=== PATIENT | female | born 1980 | race Hispanic/Latino ===

== ENCOUNTER → 2023-05-06 | Emergency (ER) | payer SELFPAY ==
[~2023-05-06] MED LIST: AMOX/K CLAV 875 MG TAB ONE
--- NOTE | 2023-05-06 22:12 | EDPHYS ---
Physician Documentation [facility] Name: Pilar Akins Age: 43 yrs Sex: Female : 1980 Arrival Date: 05/06/2023 Time: 21:51 Bed IW1 Private MD: ED Physician Morales Gordon HPI: 05/06 22:12 This 43 yrs old Female presents to ER via Ambulatory with complaints of Jaw ec2 Pain, Ear Pain, Diarrhea. 22:12 Patient arrives today for right lower dental pain. Patient reports that she has a ec2 history of dental infections, dental caries, supposed to have her tooth pulled however has not seen a dentist. Patient reports no fevers, reports subjective chills. Reports some nausea. Reports bouts of diarrhea as well. Patient reports no issues with p.o. intake, does report right lower jaw pain.. Historical: - Allergies: 22:08 Tramadol; hb - Home Meds: 22:07 None [Active]; hb - PMHx: 22:07 None; hb - PSHx: 22:07 None; Tramadol; hb - Immunization history:: Adult Immunizations up to date. - Social history:: Smoking status: Patient denies any tobacco usage or history of. ROS: 22:12 Constitutional: as per hpi ec2 Exam: 22:12 Constitutional: GEN: NAD Head: atraumatic Eyes: EOMI Ears: External ears are normal. ec2 Mouth: Significant dental caries in the right lower mouth, erythema at the gumline, neck with no swelling, no induration, no fluctuance. No malocclusion, no issues with airway, no issues with phonation, no issues with secretions. CV: regular rate LUNGS: no respiratory distress ABD: non-distended SKIN: no evidence of rashes MSK: no evidence of trauma NEURO: moves all extremities equally Vital Signs: 22:05 BP 150 / 87; Pulse 79; Resp 18; Temp 98.1; Pulse Ox 100% on R/A; Pain 6/10; hb 22:05 Pain Scale: Adult hb MDM: 22:11 Patient medically screened. ec2 22:12 Data reviewed: vital signs. ED course: Patient arrives today for evaluation of dental ec2 pain. Examination remarkable for dental findings noted above. Will treat for dental infection, low suspicion for deep space infection given the patient's well appearance. Will defer any lab work such as CBC or BMP, accordingly will also defer CT scan of the neck. Instructed her to follow-up with a dentist for teeth extraction.. Administered Medications: 22:23 Drug: Amoxicillin-Clavulanate PO 875 mg PO once Route: PO; hb 22:23 Follow up: Response: Medication administered at discharge. hb Disposition Summary: 05/06/23 22:11 Discharge Ordered Notes: Location: Home ec2 Condition: Stable ec2 Diagnosis - Dental Infection ec2 Followup: ec2 - With: Private Physician - When: - Reason: Re-evaluation by your physician Discharge Instructions: - Discharge Summary Sheet ec2 - Dental Caries, Adult ec2 Forms: - Medication Reconciliation Form ec2 - Thank You Letter ec2 - Antibiotic Education ec2 - Prescription Opioid Use ec2 - Patient Portal Instructions ec2 - Leadership Thank You Letter ec2 Prescriptions: - Augmentin 875-125 mg Oral tablet - take 1 tablet ORAL route every 12 hours for 7 days; 14 tablet; Refills: 0, ec2 Product Selection Permitted - Zofran 4 mg Oral Tablet - take 1 tablet ORAL route every 12 hours As needed; 20 tablet; Refills: 0, ec2 Product Selection Permitted Signatures: Tamar Alvarenga RN RN Morales Gordon MD MD ec2 Corrections: (The following items were deleted from the chart) 22:07 22:07 Allergies: tramadol; hb hb
--- NOTE | 2023-05-06 22:12 | ER ---
Nurse's Notes [facility] Name: Pilar Akins Age: 43 yrs Sex: Female : 1980 Arrival Date: 05/06/2023 Time: 21:51 Bed IW1 Private MD: Diagnosis: Dental Infection Presentation: 05/06 22:05 Chief complaint: Right lower molar pain x 3 days, pain began to radiate to right neck + hb right sided faciale swelling since last night. Vomiting and chills today. Coronavirus screen: At this time, the client does not indicate any symptoms associated with coronavirus-19. Ebola Screen: No symptoms or risks identified at this time. Initial Sepsis Screen: Does the patient meet any 2 criteria? No. Patient's initial sepsis screen is negative. Does the patient have a suspected source of infection? No. Patient's initial sepsis screen is negative. Risk Assessment: Do you want to hurt yourself or someone else? Patient reports no desire to harm self or others. Onset of symptoms was May 03, 2023. 22:05 Method Of Arrival: Ambulatory hb 22:08 Acuity: VERN 4 hb Triage Assessment: 22:07 General: Appears in no apparent distress. Behavior is calm, cooperative. Pain: Pain hb currently is 6 out of 10 on a pain scale. EENT: Reports right sided facial pain and swelling. Neuro: Level of Consciousness is awake, alert, obeys commands, Oriented to person, place, time, situation. Cardiovascular: Patient's skin is warm and dry. Respiratory: Respiratory effort is even, unlabored, Respiratory pattern is regular, symmetrical. Historical: - Allergies: 22:08 Tramadol; hb - Home Meds: 22:07 None [Active]; hb - PMHx: 22:07 None; hb - PSHx: 22:07 None; Tramadol; hb - Immunization history:: Adult Immunizations up to date. - Social history:: Smoking status: Patient denies any tobacco usage or history of. Screenin:23 [facility] ED Fall Risk Assessment (Adult) Score/Fall Risk Level 0 - 2 = Low Risk hb Oriented to surroundings, Maintained a safe environment. Abuse screen: Denies threats or abuse. Denies injuries from another. Nutritional screening: No deficits noted. Tuberculosis screening: No symptoms or risk factors identified. Assessment: 22:23 General: See triage assessment.. hb Vital Signs: 22:05 BP 150 / 87; Pulse 79; Resp 18; Temp 98.1; Pulse Ox 100% on R/A; Pain 6/10; hb 22:05 Pain Scale: Adult hb ED Course: 21:54 Patient arrived in ED. im 21:55 Morales Gordon MD is Attending Physician. ec2 22:07 Arm band placed on. hb 22:08 Triage completed. hb 22:19 Tamar Alvarenga, RN is Primary Nurse. hb 22:23 Patient has correct armband on for positive identification. Provided Education on: hb education, follow up. 22:23 No provider procedures requiring assistance completed. Patient did not have IV access hb during this emergency room visit. Administered Medications: 22:23 Drug: Amoxicillin-Clavulanate PO 875 mg PO once Route: PO; hb 22:23 Follow up: Response: Medication administered at discharge. hb Medication: 22:23 VIS not applicable for this client. hb Outcome: 22:11 Discharge ordered by . ec2 22:23 Discharged to home ambulatory, hb 22:23 Condition: stable 22:23 Discharge instructions given to patient, Instructed on discharge instructions, follow up and referral plans. medication usage, Demonstrated understanding of instructions, follow-up care, medications, Prescriptions given X 2, 22:24 Patient left the ED. hb Signatures: Tamar Alvarenga RN RN Nalini Baltazar Morales Gordon MD MD ec2 Corrections: (The following items were deleted from the chart) 22:07 22:07 Allergies: tramadol; hb hb 22:09 22:05 BP 154 / 107; Pulse 79bpm; Resp 18bpm; Pulse Ox 100% RA; Temp 98.1F; hb hb 22:09 22:05 BP 150 / 87; Pulse 79bpm; Resp 18bpm; Pulse Ox 100% RA; Temp 98.1F; hb hb
[2023-05-06 22:42] VITALS: BP 150/87; TEMP 98.1; O2SAT 100
== END ==
LOC: ER 21:51
DX: K04.7 Periapical abscess without sinus (principal)
CPT/HCPCS: 99283